=== PATIENT | female | born 1955 ===

== ENCOUNTER 2020-06-14 07:00 | Inpatient (IN) | payer OTHER ==
[~2020-06-14] VITALS: Ht 162.6 cm; Wt 67.6 kg
[2020-06-14] MEDS ORDERED: METHIMAZOLE (12:04)
[2020-06-14] MEDS ORDERED: NORVASC10 MG (12:04)
[2020-06-14] MEDS ORDERED: PROPANADOL (12:04)
[2020-06-19] MEDS ORDERED: INNOPRAN XL80 MG (08:01)
[2020-06-19] MEDS ORDERED: METHIMAZOLE5 MG (08:02)
== END 2020-06-19 09:46 | disposition home or self-care (01) | DRG 627 ==
LOC: EDSTATUS 07:00 → ADM 07:00 → SURH 07:00 → O/R 06-18 07:45 → SURH 06-18 07:45
PROVIDERS: ADMIT Surgery; ATTEND Surgery
PROC: 0GTG0ZZ Resection of Left Thyroid Gland Lobe, Open Approach (ICD-10-PCS; 2020-06-18)
PROC: 0GTH0ZZ Resection of Right Thyroid Gland Lobe, Open Approach (ICD-10-PCS; principal; 2020-06-18 09:00)
DX: E05.20 Thyrotoxicosis with toxic multinodular goiter without thyrotoxic crisis or storm (principal)

== ENCOUNTER 2020-06-14 15:15 | Outpatient (CLI) | payer OTHER ==
[~2020-06-14 15:15] MED LIST: METHIMAZOLE; NORVASC10 MG; PROPANADOL
== END 2020-06-14 15:19 | disposition home or self-care (01) ==
LOC: RAD 15:15
PROVIDERS: ATTEND Internal Medicine
DX: R05 Cough (principal); Z20.828 Contact with and (suspected) exposure to other viral communicable diseases

== ENCOUNTER 2021-07-29 09:53 | Outpatient (CLI) | payer OTHER ==
[~2021-07-29 09:53] MED LIST changes: +INNOPRAN XL80 MG; +METHIMAZOLE5 MG
== END 2021-07-29 10:03 | disposition home or self-care (01) ==
LOC: RAD 09:53
PROVIDERS: ATTEND General Practice
DX: R92.1 Mammographic calcification found on diagnostic imaging of breast (principal); Z12.31 Encounter for screening mammogram for malignant neoplasm of breast; I10 Essential (primary) hypertension

== ENCOUNTER 2022-07-31 09:47 | Outpatient (CLI) | payer OTHER | END 2022-07-31 09:54 | disposition home or self-care (01) | LOC: MAMO-SONO 09:47 | PROVIDERS: ATTEND General Practice | DX: Z12.31 Encounter for screening mammogram for malignant neoplasm of breast (principal); R22.2 Localized swelling, mass and lump, trunk ==

== ENCOUNTER 2023-03-20 08:57 | Outpatient (CLI) | payer OTHER | END 2023-03-20 09:01 | disposition home or self-care (01) | LOC: RAD 08:57 | PROVIDERS: ATTEND General Practice | DX: J44.9 Chronic obstructive pulmonary disease, unspecified (principal) ==

== ENCOUNTER 2023-11-20 08:51 | Outpatient (CLI) | payer OTHER | END 2023-11-20 09:01 | disposition home or self-care (01) | LOC: MAMO-SONO 08:51 | PROVIDERS: ATTEND General Practice | DX: E03.9 Hypothyroidism, unspecified (principal); Z12.31 Encounter for screening mammogram for malignant neoplasm of breast ==

== ENCOUNTER 2024-04-25 14:10 | Outpatient (CLI) | payer OTHER | END 2024-04-25 14:14 | disposition home or self-care (01) | LOC: RAD 14:10 | PROVIDERS: ATTEND General Practice | DX: M15.9 Polyosteoarthritis, unspecified (principal); J44.9 Chronic obstructive pulmonary disease, unspecified ==

== ENCOUNTER 2024-10-19 13:38 | Outpatient (CLI) | payer OTHER | END 2024-10-19 13:40 | disposition home or self-care (01) | LOC: RAD 13:38 | DX: M99.01 Segmental and somatic dysfunction of cervical region (principal); M99.02 Segmental and somatic dysfunction of thoracic region; M99.03 Segmental and somatic dysfunction of lumbar region; M99.05 Segmental and somatic dysfunction of pelvic region ==

== ENCOUNTER 2024-12-06 10:51 | Outpatient (CLI) | payer OTHER | END 2024-12-06 10:53 | disposition home or self-care (01) | LOC: RAD 10:51 | DX: J45.909 Unspecified asthma, uncomplicated (principal) ==

== ENCOUNTER 2025-01-03 09:41 | Outpatient (CLI) | payer OTHER | END 2025-01-03 09:49 | disposition home or self-care (01) | LOC: MAMO-SONO 09:41 | PROVIDERS: ATTEND General Practice | DX: N64.4 Mastodynia (principal); Z12.31 Encounter for screening mammogram for malignant neoplasm of breast ==

== ENCOUNTER → 2025-01-30 13:42 | Outpatient (CLI) | payer OTHER | END | disposition home or self-care (01) | LOC: NUCLEAR 13:30 | PROVIDERS: ATTEND General Practice | DX: M81.0 Age-related osteoporosis without current pathological fracture (principal) ==

== ENCOUNTER 2025-03-22 10:04 | Outpatient (CLI) | payer OTHER | END 2025-03-22 10:22 | disposition home or self-care (01) | LOC: SONOGRAMA 10:04 | PROVIDERS: ATTEND General Practice | DX: R31.1 Benign essential microscopic hematuria (principal); E06.9 Thyroiditis, unspecified ==

== ENCOUNTER 2025-06-02 09:21 | Outpatient (CLI) | payer OTHER | END 2025-06-02 09:29 | disposition home or self-care (01) | LOC: TOM 09:21 | PROVIDERS: ATTEND Urology | DX: R19.00 Intra-abdominal and pelvic swelling, mass and lump, unspecified site (principal); C67.9 Malignant neoplasm of bladder, unspecified | CPT/HCPCS: 74178; Q9965 ==